=== PATIENT | male | born 1960 | race Caucasian/White ===

== ENCOUNTER 2021-05-10 09:46 | Outpatient (CLI) | payer BC, OTHER | END 2021-05-10 09:47 | disposition home or self-care (01) | LOC: BICRAD 09:46 | PROVIDERS: ATTEND Nurse Practitioner Family | DX: R06.02 Shortness of breath (principal); R06.2 Wheezing; R91.8 Other nonspecific abnormal finding of lung field | CPT/HCPCS: 71046 ==